=== PATIENT | male | born 1935 | race Caucasian/White ===

== ENCOUNTER → 2019-10-11 | Outpatient (CLI) | payer MEDICARE, BC, OTHER ==
--- NOTE | 2019-10-12 10:17 | XCELERA REPORT ---
[address] [address] Transthoracic Echocardiogram Report Name: ALCIDES LOMELI Age: 84 yrs Gender: Male : 1935 Patient Status: Outpatient Patient Location: [facility] Study Date: 10/11/2019 01:02 PM History: CHF Atrial fibrillation Height: 67 in Weight: 154 lb BSA: 1.8 m2 Procedure: A complete two-dimensional transthoracic echocardiogram was performed (2D, M-mode, spectral and color flow Doppler). The study was technically difficult with many images being suboptimal in quality. Reason For Study: ANGINA Previous Evaluation: No previous studies were available. History: CHF. Atrial fibrillation. Ordering Physician: JESSE VALIENTE Performed By: Lyndsay Escalante Interpretation Summary Left ventricular systolic function is normal. The Ejection Fraction estimate is 55-60% The right ventricle is normal in size and function. There is a mild amount of mitral regurgitation There is no aortic valve stenosis There is a mild amount of aortic regurgitation There is a mild amount of tricuspid regurgitation There is no pericardial effusion. MMode/2D Measurements & Calculations RVDd: 2.0 cm LVIDd: 4.4 cm FS: 34.1 % Ao root diam: 2.5 cm IVSd: 1.1 cm LVIDs: 2.9 cm EDV(Teich): Ao root area: LVPWd: 0.97 cm 88.0 ml 5.1 cm2 ESV(Teich): 32.3 ml EF(Teich): 63.3 % EDV(MOD-sp4): SV(MOD-sp4): 60.6 ml 39.8 ml ESV(MOD-sp4): 20.8 ml EF(MOD-sp4): 65.7 % Doppler Measurements & Calculations MV E max kory: Ao V2 max: AI max kory: LV V1 max P.8 cm/sec 180.5 cm/sec 320.3 cm/sec 3.9 mmHg MV A max kory: Ao max PG: AI max P.3 mmHg LV V1 max: 115.5 cm/sec 13.0 mmHg 99.4 cm/sec AI dec slope: MV E/A: 0.46 101.4 cm/sec2 AI P1/2t: 925.4 msec PA V2 max: TR max kory: 65.8 cm/sec 287.2 cm/sec PA max P.7 mmHg TR max P.0 mmHg Left Ventricle The left ventricle is grossly normal size. There is moderate concentric left ventricular hypertrophy. Left ventricular systolic function is normal. The Ejection Fraction estimate is 55-60%. Doppler measurements suggest impaired left ventricular relaxation, which is associated with grade I/IV or mild diastolic dysfunction. Regional wall motion abnormalities cannot be excluded due to limited visualization. Right Ventricle The right ventricle is normal in size and function. Atria The right atrium is normal. The left atrial size is normal. Mitral Valve The mitral valve leaflets are sclerotic, but show no functional abnormalities. There is a mild amount of mitral regurgitation. Aortic Valve The aortic valve is moderately calcified. The aortic valve is sclerotic and shows some degree of functional abnormality. The aortic valve is not well visualized secondary to technical limitations. There is no aortic valve stenosis. There is a mild amount of aortic regurgitation. Tricuspid Valve The tricuspid valve is normal in structure and function. There is a mild amount of tricuspid regurgitation. Right ventricular systolic pressure is estimated to be elevated at 30-40mmHg. There is mild pulmonary hypertension by echo. Great Vessels The aortic root is not well visualized. Effusions There is no pericardial effusion. : JESSE VALIENTE Anil
== END ==
LOC: SP 13:18
PROVIDERS: ATTEND Internal Medicine
DX: I25.10 Atherosclerotic heart disease of native coronary artery without angina pectoris (principal); I50.9 Heart failure, unspecified; R60.9 Edema, unspecified
CPT/HCPCS: 93306